=== PATIENT | female | born 1980 | race Caucasian/White ===

== ENCOUNTER 2017-03-24 10:55 | Emergency (ER) | payer MEDICAID, OTHER ==
[2017-03-24 11:21] VITALS: BP 119/83
--- NOTE | 2017-03-24 11:48 | ERNOTE ---
Lower Extremity HPI - Narrative Date of Service: 03/24/17 - General Lower Extremities Pain: ankle: right Time Seen by Provider: 03/24/17 11:30 Source: patient, RN notes reviewed Exam Limitations: no limitations - Immun/Allergies/Home Medications Immunizations: IMMUNIZATION HX Immunizations Up to Date Yes History of Influenza Vaccine No Hx Pneumococcal Vaccination No Allergies/Adverse Reactions: Allergies Allergy/AdvReac Type Severity Reaction Status Date / Time ciprofloxacin [From Cipro] Allergy Mild Nausea Verified 03/24/17 11:24 ciprofloxacin HCl Allergy Mild Nausea Verified 03/24/17 11:24 [From Cipro] doxycycline Allergy Mild Nausea Verified 03/24/17 11:24 ketorolac [From Toradol] Allergy Mild Nausea Verified 03/24/17 11:24 Home Medications: HOME MEDICATIONS Pregabalin [Lyrica] 150 mg PO TID 04/12/15 [Last Taken Unknown] lamoTRIgine [Lamictal] 200 mg PO BID 04/12/15 [Last Taken Unknown] HYDROcodone/ACETAMINOPHEN [Jay 5-325] 1 tab PO Q6H PRN #4 tab 03/24/17 [Last Taken Unknown] Topiramate [Topamax] 100 mg PO BID 03/24/17 [Last Taken Unknown] - History of Present Illness Narrative: Yvonne is a 36-year-old female ambulatory to the emergency department for ongoing right ankle pain due to an injury approximately a month ago. She was seen at that time at 2:00 [facility] and diagnosed with an ankle sprain. She reports that she had an x-ray and there was no fracture. She states that she was put in an Roni wrap at that time. She has been taking naproxen for pain without relief. She also reports that she has broken this ankle 2 times in the past. She also reports having 2 surgeries on the right knee in the past. She reports that she took 4 [id number] naproxen tablets approximately 2 hours ago and the pain has not improved. Subsequent Symptoms: Denies: sensory loss, numbness, motor loss Review of Systems - Review of Systems Constitutional: Present: no symptoms reported EYE: Present: no symptoms reported ENT: Present: no symptoms reported Respiratory: Present: no symptoms reported Cardiology: Present: no symptoms reported Gastrointestinal/Abdominal: Present: no symptoms reported Genitourinary: Present: no symptoms reported Musculoskeletal: Present: muscle pain, joint pain, joint swelling Skin: Absent: lesions, lumps, change in color Neurological: Absent: weakness, numbness, tingling Endocrine: Present: no symptoms reported Hematologic/Lymphatic: Present: no symptoms reported Psych: Present: no symptoms reported - Patient's Past Medical History Patient History - Medical: Anxiety, Bipolar, Chronic Pain, Depression, Fibromyalgia, Migraines Patient History - Cardiac/Respiratory: Pneumonia Patient History - Cancer: No Hx of Cancer Patient History - Surgical Procedures: Tubal Ligation, Orthopedic LMP (females 10-50): last week - Social History Living Situations: home Psych History: Psychiatric Hx, Hx of Anxiety, Hx of Depression, Hx of Bipolar Disorder Does anyone smoke in the home?: Yes Smoking Status: Current every day smoker Cigarettes Packs Per Day: 0.5 Alcohol Use: none Drug Use: none - Immunizations Immunizations Up to Date: Yes Hx Pneumococcal Vaccination: No History of Influenza Vaccine: No Physical Exam - Physical Exam General Appearance: Present: wd/wn, alert, no apparent distress, obese, other - eating a candy bar and drinking a soda Respiratory: Present: no respiratory distress, no accessory muscle use Cardiovascular/Chest: Present: normal peripheral pulses Peripheral Pulses: N=norm/S=strong/W=weak/B=bound/A=absent: Dorsalis-pedis (R): Strong Extremity Exam: Present: normal inspection, normal range of motion, no edema, other - diffuse tenderness with palpation of right ankle, no edema or deformity present Neurological Exam: Present: alert, oriented, normal mood/affect, no motor/ sensory deficits Skin Exam: Present: normal color, warm/dry ED Progress - Vital Signs Patient's Vital Signs:: I have reviewed the patient's vital signs. Vital Signs: Vital Signs 03/24/17 11:14 Temperature 36.7 C Pulse Rate 89 Respiratory 16 Rate Blood Pressure 119/83 O2 Sat by Pulse 98 Oximetry - X-Ray X-Ray #1 X-Ray: ankle Interpretation: Reviewed by me X-ray Comments: TECHNIQUE: 3 views of the left ankle. COMPARISONS: No previous left ankle films available for comparisons. Previous films of the left foot from 01/19/2015 available. Ankle Minimum 3 View LT * On the AP image, there is a curvilinear ossific fragment, distal to the lateral malleolus and overlying the lateral process of the talus. On the lateral image, there is a well-corticated ossific density seen projecting over the dorsal aspect of the navicular bone most likely in normal variant ossicle, stable. Joint spaces are in gross normal alignment without subluxation or dislocation. Diffuse soft tissue swelling noted, more so on the lateral aspect of the ankle. IMPRESSION: 1. Ossific fragment of indeterminate significance seen near the distal tip of the lateral malleolus, and the lateral process of the talus. Consider potential avulsion fracture. 2. Soft tissue swelling as above. Electronically signed by Tyree Sarkar M.D.. - Progress/Reassessment Chief Complaint: Lower Extremity Pain/ Injury Progress:: Unchanged Plan - Plan Plan: Xray shows an ossific fragment near the distal aspect of the lateral malleolus - may be an avulsion fracture, possibly also d/t previous hx of fracture several years ago. Discussed results with patient. Cam boot applied. To contact ortho of her choosing for f/u. Tearfully reports needing something stronger for pain than naproxen - rx for #4 Jay given - instructed to contact her PCP for further pain meds Departure Clinical Impression: Avulsion fracture of distal fibula Ankle pain, left Qualifiers: Chronicity: unspecified Qualified Code(s): M25.572 - Pain in left ankle and joints of left foot - Departure Disposition: Home Follow Up Needed Condition: Stable Instructions: Ankle Sprain, [id number] Additional Instructions: Wear boot for support Contact orthopedics for follow up Continue naproxen but do not take more than 2 tablets every 12 hours - take with food Referrals: Butch Cordova MD [Primary Care Provider] - Nando Alamo MD [Staff Physician] - Prescriptions: HYDROcodone/ACETAMINOPHEN [Jay 5-325] 1 tab PO Q6H PRN #4 tab PRN Reason: Pain
--- OUTSIDE RECORDS SUMMARY | 2017-03-24 11:59 | XMS REPORT | Continuity of Care Document ---
:1980 Author Organization [facility] ([facility]) Address [address] [address] Phone [phone] Care Team Providers Name Role Phone Provider, No-Primary Care Primary Care Provider Unavailable Source Comments This disclosure is being made pursuant to the Care Everywhere program, applicable federal and state laws, and may not contain all informaitonavailable regarding this patient.[facility] ([facility]) Active Allergies and Adverse Reactions Allergen Noted Date Severity Reactions Comments Ciprofloxacin 01/17/2015 Diarrhea Doxycycline 01/17/2015 Diarrhea Current Medications Prescription Sig. Disp. Refills Start Date End Date Status topiramate 100 mg Take 100 mg by mouth Active tablet 2 times daily. fluticasone 50 use 2 Sprays into Active mcg/Actuation nasal both nostrils daily. spray ibuprofen 800 mg tablet Take 800 mg by mouth Active every 8 hours as needed. HYDROcodone-acetaminoph Take 1 Tab by mouth Active en 5-325 mg per tablet every 4 hours as needed. ibuprofen 800 mg tablet Take 1 Tab by mouth 20 Tab 0 02/03/2015 Active every 6 hours as needed for Pain. DO NOT EXCEED 3,200 MG IBUPROFEN PER DAY FROM ALL SOURCES Indications: PAIN DULoxetine 30 mg XR Take 30 mg by mouth Active capsule daily. traMADol 50 mg tablet Take 1-2 Tabs by 20 Tab 0 02/03/2015 Active mouth every 6 hours as needed for Pain. Indications: PAIN Active Problems Problem Noted Date Tooth pain 01/17/2015 Caries 01/17/2015 Social History Tobacco Use Types Packs/Day Years Used Date Former Smoker Cigarettes 1 4 Quit: 11/19/2014 Smokeless Tobacco: Never Used Alcohol Use Drinks/Week oz/Week Comments No Last Filed Vital Signs Vital Sign Reading Time Taken Blood Pressure 116/66 02/03/2015 12:00 PM CDT Pulse 87 01/17/2015 8:59 AM CDT Temperature 36.5 C (97.7 F) 02/03/2015 11:35 AM CDT Respiratory Rate - - Height 1.753 m (5' 9") 02/03/2015 11:37 AM CDT Weight 104.781 kg (231 lb) 02/03/2015 11:37 AM CDT Body Mass Index 34.1 02/03/2015 11:37 AM CDT Oxygen Saturation 98% 02/03/2015 12:00 PM CDT Plan of Care Health Maintenance Due Date Last Done Comments Hepatitis B Vaccine (1 of 3 - Primary Series) 1980 Tdap Vaccine 1992 Lipid Disorder Screening 1999 MMR Vaccine 1999 Td Vaccine 1999 Varicella Vaccine (1 of 2 - Adult - No Evidence of 1999 Immunity) Cervical Cancer Screening 2011 Influenza Vaccine: Seasonal (#1) 05/31/2016 Results from Last 3 Months Not on file
== END 2017-03-24 12:44 | disposition home or self-care (01) ==
LOC: ER 10:55
DX: S82.402A Unspecified fracture of shaft of left fibula, initial encounter for closed fracture (principal); M25.572 Pain in left ankle and joints of left foot; F17.200 Nicotine dependence, unspecified, uncomplicated